=== PATIENT | female | born 1970 | race Caucasian/White ===

== ENCOUNTER 2025-03-02 19:22 | Inpatient (IN) | payer BC, SELFPAY ==
[2025-03-02] VITALS (10 sets, daily range): BP systolic 120–146; BP diastolic 77–96; BMI 33.2; BMI 31.7
[2025-03-02 14:34] LABS: % Basophils 0.3 % (0-2); % Eosinophils 1.6 % (0-6); % Immature Granulocytes 0.3 % (0-0.5); % Lymphocytes 16.4 % (20.5-51.1); % Monocytes 7.2 % (1.7-9.3); % Neutrophils 74.2 % (42.2-75.2); Absolute Eosinophils 0.2 10^3/uL (0-0.7); Absolute Lymphocytes 2.2 10^3/uL (1.2-3.4); Hematocrit 39.8 % (37.0-47.0); Hemoglobin 13.6 g/dL (12.0-16.0); Mean Corp Hgb Conc. 34.2 g/dL (33.0-37.0); Mean Corpuscular Hgb 33.8 pg (27.0-31.0); Mean Platelet Volume 9.2 fL (7.4-10.4); Nucleated Red Blood Cells % 0 %; Platelet Count 178 10^3/uL (130-400); Red Blood Cell Count 4.02 10^6/uL (4.20-5.40); Red Cell Dist. Width 12.8 % (11.5-14.5); White Blood Cell Count 13.5 10^3/uL (4.8-10.8)
[2025-03-02 14:47] LABS: D-Dimer 3.09 ug/mlFEU (0.00-0.50); HCG, Serum Qualitative Screen Negative
[2025-03-02 14:52] LABS: ALT (SGPT) 16 U/L (0-35); AST (SGOT) 22 U/L (14-36); Albumin 4.1 g/dl (3.5-5.0); Alkaline Phosphatase 60 U/L (38-126); Blood Urea Nitrogen 17 mg/dl (7-17); Calcium 9.7 mg/dl (8.4-10.2); Carbon Dioxide 25 mmol/L (22-30); Chloride 105 mmol/L (98-107); Glucose 102 mg/dl (70-99); Potassium 4.6 mmol/L (3.5-5.1); Sodium 138 mmol/L (135-145); Total Bilirubin 1.3 mg/dl (0.2-1.3); Total Protein 7.2 g/dl (6.3-8.2); eGFR > 60.00
--- NOTE | 2025-03-02 14:59 | ED.GENMED ---
History of Present Illness
General
Chief Complaint: Chest Pain
Source: patient
Exam Limitations: none
Time Seen by Provider: 03/02/25 14:52
History of Present Illness
History of Present Illness:
See MDM
Past History
Past History
ED Past Medical History: None
ED Past Surgical History: None
Social History
Tobacco: Non-smoker
Alcohol: None
Family History
Family History: CAD
Phy Exam
Physical Exam
Physical Exam:
See MDM
Scores
Heart Score for Chest Pain Patients
STEMI patient?: No
History: Moderately Suspicious
ECG: Normal
Age: >45 - <65 years
Risk Factors: 1 or 2 Risk Factors
Troponin: </= Normal Limit
Heart Score for Chest Pain Patients: 3
Heart Score Risk: 2.5% MACE over next 6 weeks
Course
Orders/Labs/Results
Orders:
Orders
03/02/25 13:13
Electrocardiogram (*1) Urgent
Reason for Study: Chest Pain
EKG- Treatment ONCE
03/02/25 13:30
Test Result ONCE
03/02/25 14:24
Complete Blood Count/With Diff Urgent
Comprehensive Metabolic Panel Urgent
D-Dimer Urgent
HCG, Serum Qualitative Screen Urgent
NT-proBNP Urgent
Comment: ADD ON
Troponin I Urgent
03/02/25 14:55
Add On- LAB Urgent
Tests Added?: pro BNP
CT Chest PE Study Urgent
Comment:
Reason For Exam: SOB, chest pain
03/02/25 18:15
PTT Urgent
Comment: Obtain baseline before beginning heparin infusion if not already collected
Heparin 7,900 units IV NOW STA
Heparin INFUSION titrate rate - CONTINUOUS Heparin 69549 Units/250 ml 25,000 units in 250 ml IV PER PROTOCOL
Weight to be used for heparin protocol in kilograms (kg):: 98.9
Protocol:: DVT/PE
PTT Goal Range to be used:: PTT 73 to 111 seconds
Order type:: Initial
INITIAL Infusion Dose (UNITS/KG/hr) & then follow protocol:: 18 units/kg/hr
Infusion Dose in UNITS/hr & then follow protocol (UNITS/hr):: 1,800
INFUSION RATE in mL/hr & then follow protocol (mL/hr):: 18
For DVT/PE algorithm, re-bolus for low PTT?: Yes
PTT less than or equal to 64 seconds:: Re-bolus 80 units/kg (max 10,000units). Increase by 400 units/hr
(+ 4mL/hr)
PTT 64.1 to 72.9 seconds:: Re-bolus 40 units/kg (max 5,000 units). Increase by 200 units/hr
(+ 2mL/hr)
PTT 73 to 111 seconds:: Target Range. No change in rate.
PTT 111.1 to 130.9 seconds:: Decrease rate by 200 units/hr (- 2 mL/hr)
PTT 131 to 199.9 seconds:: HOLD for 1 hr. Then decrease by 300 units/hr (- 3mL/hr)
PTT greater than or equal to 200 seconds:: HOLD for 2 hrs & Notify Provider. Then decrease by 400 units/hr
(- 4mL/hr)
Lab follow-up:: Each change, PTT q6h until 2 consecutive are therapeutic. Then
PTT daily.
Pharmacy Request to Place See Dose Instructions PO NOW STA
Discontinue all Active Warfarin orders?: Yes
Nursing to Place Non Medication Order As Directed
Physician Order: PTT 6 hours after initial start of Heparin infusion
03/02/25 19:[address] See Dose Instructions IV DIRECTED
Abnormal Lab Results
03/02/25
14:24
WBC 13.5 H 10^3/uL
(4.8-10.8)
RBC 4.02 L 10^6/uL
(4.20-5.40)
MCH 33.8 H pg
(27.0-31.0)
Absolute Neuts (auto) 10.0 H 10^3/uL
(1.4-6.5)
Absolute Monos (auto) 1.0 H 10^3/uL
(0.1-0.6)
Lymphocytes % 16.4 L %
(20.5-51.1)
D-Dimer 3.09 H ug/mlFEU
(0.00-0.50)
Glucose 102 H mg/dl
(70-99)
03/02/25 14:24
03/02/25 14:24
Vital Signs
Initial and Last Documented VS:
Initial Vital Signs
Temp Pulse Resp BP Pulse Ox
100.0 F 118 18 124/96 94
03/02/25 13:26 03/02/25 13:26 03/02/25 13:26 03/02/25 13:26 03/02/25 13:26
Last Documented Vital Signs
Temp Pulse Resp BP Pulse Ox
100.0 F 92 28 138/78 95
03/02/25 13:26 03/02/25 17:00 03/02/25 17:00 03/02/25 17:00 03/02/25 14:48
MDM/Problems Addressed
Differential Diagnosis Includes:
HPI and MDM Narrative:
54-year-old female presenting for 1 week of exertional dyspnea. Patient states she is getting winded even walking up the stairs. This was associated with mild leg cramping. She denies any fevers but she does have a low-grade fever here. She does
have mild chest discomfort and back pain. She denies prior cardiac issues but states she has a strong family history of coronary artery disease. D-dimer was ordered in triage given her symptoms and tachycardia. Given that the D-dimer is elevated,
will cancel chest x-ray and obtain CT PE.
EKG is nonischemic
Physical exam
General: Well appearing and non-toxic
HEENT: protecting airway
Neck: appears supple
CV: No evidence of cyanosis. Mild tachycardia
Resp: No accessory muscle use. Lungs clear
Abd: Non-distended
Extremities: No deformities. No significant leg edema or tenderness
Neuro: alert
Psych: Normal affect
Skin: Intact
Problems Addressed including Acute and Chronic Conditions affecting care:
1. Exertional chest pain and shortness of breath
Acuity: acute
Prognosis: stable
Details: Given the tachycardia and her symptoms, will obtain CT PE
Updates
CT consistent with bilateral pulmonary embolism. Patient now recollecting that she did have a recent fall and injured her leg. Potentially this was the inciting event. Regardless, we will start IV heparin and admit
Differential Diagnosis (but not limited to): Acute coronary syndrome, pulm embolism, pneumonia
Testing considered: Echocardiogram
Drug therapy (if applicable): OTC meds, please see d/c instruction regarding Rx drugs
Amount and/or Complexity of Data Reviewed
Clinical info obtained from: Patient
External data reviewed: N/A
Labs I independently reviewed (but not limited to): Mild leukocytosis. Troponin negative
Radiology: The CT scan was personally and independently reviewed. In addition, official CT report reviewed.
Pulse Ox: not hypoxic
EKG independently reviewed: Sinus tachycardia, normal axis, no STEMI
Cuff Setter Overlock: Sinus rhythm
Critical Care: The high probability of a clinically significant, sudden or life threatening deterioration of the cardiopulmonary system(s) required my full and direct attention, intervention and personal management. The aggregate critical care time
was 35 minutes. This time is in addition to time spent performing reported procedures but includes the following:
[x] Data Review and interpretation
[x] Patient assessment and monitoring of vital signs
[x] Documentation
[x] Medication orders and management
Risk of Complication:
Social Determinants of health: Good social support
Discussed with other providers: Hospitalist
Escalation of Care includes Admit/Obs: Given the bilateral pulmonary embolisms, will start IV heparin and admit
Occasional wrong word or 'sound a like' substitutions may have occurred due to the inherent limitations of voice recognition software. Read the chart carefully and recognize, using context, where substitutions have occurred.
*Critical Care Note
Total Time (30-74mins, 75-104mins- exclusive of procedures): 35 min
ED Attending Note
-
Portions of this chart may have been created with voice recognition software.� Occasional wrong word or��sound alike� substitutions may have occurred due to the inherent limitations of voice recognition software.
Discharge Plan
Departure
Patient Disposition: Admit
Date of Disposition: 03/02/25
Time of Disposition: 18:17
Admit to: IMU
Presentation/result/management discussed w/ accepting MD/DO: Hospitalist
Discharge Problem:
Pulmonary embolism
Prescriptions:
No Action
No Current Medications
0
Referrals:
NONE,* [Family Provider] -
Interventions
Interventions:
*Risk Screen - Suicide Last Done: 03/02/25 13:26
*General Assessment Last Done: 03/02/25 13:26
*Neglect/Abuse Screening Last Done: 03/02/25 13:26
*ED- Fall Risk Assessment Last Done: 03/02/25 14:28
*ED COVID-19 Vaccine History Last Done: 03/02/25 14:28
ED- Cardiac Assessment Last Done: 03/02/25 14:43
Discharge Date and Time
Print Language: MARSHALLESE
[2025-03-02 15:03] LABS: Troponin I < 0.012 ng/ml
[2025-03-02 15:50] LABS: NT-proBNP 57.4 pg/ml
[2025-03-02] MEDS: HEPARIN 7900 UNITS IV (18:42)
[2025-03-02] MEDS: HEPARIN 25000 UNITS/250 ML IV (18:45)
--- NOTE | 2025-03-02 19:01 | HPS.HSE ---
Family Physician
-
Family Physician: * NONE
Chief Complaint
-
chest pain
History of Present Illness
54-year-old female past medical history of exercise-induced asthma, GERD, recently diagnosed diabetes presenting with shortness of breath for the past several weeks particularly since yesterday, dry cough, chest pain with radiation to the back with
breathing.
2 weeks ago she had a fall from a truck fell onto her left hip with pain over the left upper thigh. He did have some bruising which improved.
She does have cramping in her bilateral legs. She has also had pain in her left abdomen described as cramping and epigastric region since yesterday. She did have some loose stool this morning but no vomiting or diarrhea or constipation. Patient
thought that she felt a lump in her belly.
Denies any long travels, recent surgery, or COVID infection.
She was recently diagnosed with diabetes with an A1c greater than 7 but is still in the process of finding a primary care physician.
She has significant family history of heart disease on her father side. Her maternal grandmother had emphysema. No family history of blood clots.
She smoked when she was very young for short period of time. Denies alcohol. Denies drugs.
Medical History
Past Medical History
Past Medical History: Reports Other (exercise-induced asthma, GERD,)
Past Surgical History: Reports None
Social History
Tobacco: Non-smoker
Alcohol: None
Drug: None
Family History
Family History: Not pertinent
Allergies / Home Medications
Allergies reflects when Allergies were last updated in [facility].
Home Medications with original date entered in [facility]
Allergy/Medication List:
Allergies
Allergy/AdvReac Type Severity Reaction Status Date / Time
cefprozil [From Cefzil] Allergy Unknown Verified 03/02/25 13:25
oxycodone [From Percocet] Allergy Unknown Verified 03/02/25 13:25
Penicillins Allergy Unknown Verified 03/02/25 13:25
Home Medications
No Meds [No Current Medications] 03/02/25
Review of Systems
-
History Source: Patient
A 12 point ROS was completed and negative except as noted: Yes
Constitutional: Reports No Symptoms
EENT: Reports No Symptoms
Respiratory: Reports No Symptoms
Cardiac: Reports No Symptoms
Abdomen/GI: Reports No Symptoms
: Reports No Symptoms
Musculoskeletal: Reports No Symptoms
Skin: Reports No Symptoms
Neurological: Reports No Symptoms
Endocrine: Reports No Symptoms
Hematologic/Lymphatic: Reports No Symptoms
Psych: Reports No Symptoms
Physical Exam
Vital Signs
Vital Signs
Temp Pulse Resp BP Pulse Ox
100.0 F 98 26 141/83 95
03/02/25 13:26 03/02/25 18:45 03/02/25 18:45 03/02/25 18:00 03/02/25 14:48
Physical Exam
General: Well Developed, Well Nourished and No Apparent Distress
HEENT: NormoCephalic, Moist mucous membranes and Atraumatic
Respiratory: Clear
Cardiac: S1/S2 and Regular Rhythm; No Murmur or Rub
GI: Soft, Non Tender, Non Distended and Normal Bowel Sounds; No Organomegaly
Rectal: Deferred by Provider
Musculoskeletal: No Clubbing, No Cyanosis and No Edema
Skin: No Rash
Neuro: Nonfocal/grossly intact
Laboratory Results
-
03/02/25 14:24
03/02/25 14:24
Laboratory Results
Total Bilirubin 1.3 mg/dl (0.2-1.3) 03/02/25 14:24
AST 22 U/L (14-36) 03/02/25 14:24
ALT 16 U/L (0-35) 03/02/25 14:24
Alkaline Phosphatase 60 U/L (38-126) 03/02/25 14:24
Troponin I < 0.012 ng/ml 03/02/25 14:24
Data Reviewed
-
Lab Data: Labs Reviewed by me
Old Records: Reviewed
Impression/Plan
-
IMPRESSION:
PLAN:
# Unprovoked bilateral pulmonary emboli
-Only provoking factor could be DVT from recent fall
-CT chest shows moderate volume bilateral pulmonary embolism, right greater than left in the distal right main pulmonary artery with findings suggesting developing pulmonary infarct
- Heparin drip
- Check venous ultrasound lower extremities
- Check echo
# Epigastric/left lower quadrant abdominal pain unclear etiology
-No palpable mass or hernia
- Unclear etiology
- Check CT scan abdomen tomorrow since she has already received significant IV contrast today
- Tylenol, Dilaudid for pain
Recently diagnosed diabetes
- Not started treatment yet
GERD
Exercise-induced asthma
Full code
DVT prophylaxis�heparin
Regular diet
[2025-03-02 19:04] LABS: APTT 29.1 Sec (23.4-35.0)
[2025-03-02] MEDS: DILAUDID 0.5 MG IV (19:17)
--- NOTE | 2025-03-02 21:00 | TRANSFER ---
Addendum entered by Jewels Esquivel RN 03/03/25 02:20:
all belongings and call lopez within reach. pt updated on plan of care. daughter left for the night.
Original Note:
Pt was received from the ED. Ambulated to the bed with heparin gtt infusing. Telemetry monitoring in place. Oriented to the room. Pt aware of need to call when getting OOB due to IV pole and bleeding risk.
[2025-03-02] MEDS: TYLENOL 650 MG PO (21:25)
[2025-03-03 01:01] LABS: APTT 191.5 Sec (23.4-35.0)
[2025-03-03 03:11] VITALS: BP 113/70
--- NOTE | 2025-03-03 03:17 | PTCARENOTE ---
Found to be hypoxic 88-90% RA. Placed on 4L NC. SPO2 improved to 95%. Clear breath sounds with newly diminished BL lower bases. Pt c/o chest tightness, denies SOB. Provider notified.
[2025-03-03] MEDS: DUONEB 3 ML INH ×2 (03:35→09:54)
[2025-03-03 05:46] LABS: % Basophils 0.3 % (0-2); % Eosinophils 2.8 % (0-6); % Immature Granulocytes 0.3 % (0-0.5); % Lymphocytes 27.1 % (20.5-51.1); % Monocytes 8.9 % (1.7-9.3); % Neutrophils 60.6 % (42.2-75.2); Absolute Eosinophils 0.4 10^3/uL (0-0.7); Absolute Lymphocytes 3.5 10^3/uL (1.2-3.4); Absolute Monocytes 1.1 10^3/uL (0.1-0.6); Absolute Neutrophils 7.7 10^3/uL (1.4-6.5); Hematocrit 38.3 % (37.0-47.0); Hemoglobin 13.1 g/dL (12.0-16.0); Mean Corp Hgb Conc. 34.2 g/dL (33.0-37.0); Mean Corpuscular Hgb 34.3 pg (27.0-31.0); Mean Corpuscular Volume 100.3 fL (81.0-99.0); Mean Platelet Volume 10.1 fL (7.4-10.4); Nucleated Red Blood Cells % 0 %; Platelet Count 183 10^3/uL (130-400); Red Blood Cell Count 3.82 10^6/uL (4.20-5.40); Red Cell Dist. Width 12.9 % (11.5-14.5); White Blood Cell Count 12.8 10^3/uL (4.8-10.8)
[2025-03-03 06:09] LABS: ALT (SGPT) 13 U/L (0-35); AST (SGOT) 19 U/L (14-36); Albumin 3.5 g/dl (3.5-5.0); Alkaline Phosphatase 69 U/L (38-126); Blood Urea Nitrogen 16 mg/dl (7-17); Calcium 9.3 mg/dl (8.4-10.2); Carbon Dioxide 25 mmol/L (22-30); Chloride 105 mmol/L (98-107); Estimated Creatinine Clearance 87 ml/min; Glucose 101 mg/dl (70-99); Potassium 4.2 mmol/L (3.5-5.1); Sodium 140 mmol/L (135-145); Total Bilirubin 1.3 mg/dl (0.2-1.3); Total Protein 6.4 g/dl (6.3-8.2); eGFR > 60.00
[2025-03-03 07:05] VITALS: BP 111/73
[2025-03-03 09:27] LABS: APTT 134.4 Sec (23.4-35.0)
[2025-03-03 11:05] VITALS: BP 139/64
--- NOTE | 2025-03-03 12:02 | PTCARENOTE ---
patient removed oxygen to eat breakfast- POX 94% on room air- patient ambulated to bathroom- noted dyspnea while ambulating back to bed. POX 84%- placed on oxygen 2L/min nasal cannula- POX 94% after 2 minutes. patient also reported increase in
upper chest tightness and requested breathing treatment. resp tech made aware. dyspnea improved as well as chest tightness Dr Mendieta made aware of above. plan of care on gong.
[2025-03-03] MEDS: HEPARIN 25000 UNITS/250 ML IV (12:24)
--- NOTE | 2025-03-03 13:31 | W.PN.HOSP.TC ---
Today's Communication/Plan
-
continue Heparin for now, start DOAC later today.
Protonix to be started
Pt seen earlier, made 2nd visit after family arrived. Mother with many questions and concerns
Assessment / Plan
Assessment / Plan
# Unprovoked bilateral pulmonary emboli
-Only provoking factor could be DVT from recent fall
-CT chest shows moderate volume bilateral pulmonary embolism, right greater than left in the distal right main pulmonary artery with findings suggesting developing pulmonary infarct
- Heparin drip
- venous ultrasound lower extremities: Occlusive thrombus in the left popliteal vein.
- Check echo
# Epigastric/left upper quadrant abdominal pain unclear etiology. Has had for months, nontender, nonburning
-No palpable mass or hernia
- Unclear etiology
- contacted radiology (Dr. Donovan) and reviewed the epigastric area with him. No gross abnormalities seen.
she does have significant GERD, will try protonix to see if symptoms resolve, may need referral to outpt GI, but options on eval may be limited until completes DOAC
- Tylenol, Dilaudid for pain
Recently diagnosed diabetes
- Not started treatment yet
GERD
Exercise-induced asthma
Full code
DVT prophylaxis�heparin
Regular diet
Anticipated Discharge: 24 - 48 hours
Subjective/Interval History
-
Date of Service: March 03, 2025
Still with pleuritic chest pain
Objective Data
-
Labs:
Laboratory Results
03/03/25 03/03/25 03/03/25
04:17 08:58 17:00
WBC 12.8 H
Hgb 13.1
Hct 38.3
Plt Count 183
APTT 134.4 H Pending
Sodium 140
Potassium 4.2
Chloride 105
Carbon Dioxide 25
BUN 16
Creatinine 0.9
Glucose 101 H
Calcium 9.3
Total Bilirubin 1.3
AST 19
ALT 13
Alkaline Phosphatase 69
Vital Signs:
Vital Signs
Temp Pulse Resp BP Pulse Ox
98.4 F 92 16 139/64 95
03/03/25 11:05 03/03/25 11:05 03/03/25 11:05 03/03/25 11:05 03/03/25 11:05
I&O
03/02/25 03/03/25 03/04/25
06:59 06:59 06:59
Intake Total 480 / 480
Balance 480 / 480
Review of Systems
-
History Source: Patient and Coordinated Provider
Constitutional: Reports Fever (100.6 5/2 @23:00)
EENT: Reports No Symptoms Reported
Respiratory: Reports Cough and Pleurisy
Cardiac: Reports No Symptoms and Chest Pain (pleurisy)
Abdomen/GI: Reports No Symptoms
Genitourinary: Reports No Symptoms
Musculoskeletal: Reports No Symptoms
Neuro: Reports No Symptoms
Physical Exam
-
General: Well Developed, Well Nourished and No Apparent Distress
HEENT: Normocephalic, Atraumatic and Moist Mucous Membranes
Respiratory: Clear to Auscultation (on shallow respirations, followed by coughing)
Cardiac: Regular Rhythm and S1/S2
GI: Soft, Nontender and Nondistended
Musculoskeletal: No Clubbing, No Cyanosis and No Edema
Skin: Warm and Dry
Neuro: Awake, Alert and Oriented
--- NOTE | 2025-03-03 14:36 | CM ---
Met with patient to obtain information for assessment. Family was at bedside. Patient stated that she lives with her two college aged children in a one story home with a basement and one step to enter. She described herself as independent with her
ADLs, personal care, dressing and bathing. 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 She drives and can get to appointments and does her own shopping. Patient has no DME. She has never had VN or been to a SNF. She is currently
on o2 but does not have any at home. Patient is employed night time babysitter as a teacher.
Patient has a prescription plan and uses, [facility] in [place] for all of her medications.
She stated that she currently does not have a PCP but did make an appointment for a practice in April.
Per attending patient will need to be on Eliquis. Advised attending and patient of the coupon plan for commercial insurances. Will provide cards.
Plan: Case management will continue to follow and assist with discharge planning. Home when stable. Will watch for o2 needs.
[2025-03-03 15:05] VITALS: BP 121/75
[2025-03-03 18:05] LABS: APTT 57.7 Sec (23.4-35.0)
[2025-03-03] MEDS: HEPARIN 7900 UNITS IV (18:17)
[2025-03-03] MEDS: PROTONIX 40 MG PO (18:18)
[2025-03-03 19:50] VITALS: BP 126/69
[2025-03-03] MEDS: ELIQUIS 10 MG PO (19:58)
[2025-03-03 23:11] VITALS: BP 102/69
[2025-03-04 03:05] VITALS: BP 107/65
[2025-03-04 06:42] LABS: % Basophils 0.4 % (0-2); % Eosinophils 5.4 % (0-6); % Immature Granulocytes 0.3 % (0-0.5); % Lymphocytes 21.9 % (20.5-51.1); % Monocytes 7.9 % (1.7-9.3); % Neutrophils 64.1 % (42.2-75.2); Absolute Eosinophils 0.6 10^3/uL (0-0.7); Absolute Lymphocytes 2.2 10^3/uL (1.2-3.4); Absolute Monocytes 0.8 10^3/uL (0.1-0.6); Absolute Neutrophils 6.5 10^3/uL (1.4-6.5); Hematocrit 36.8 % (37.0-47.0); Hemoglobin 12.5 g/dL (12.0-16.0); Mean Corpuscular Hgb 33.6 pg (27.0-31.0); Mean Corpuscular Volume 98.9 fL (81.0-99.0); Mean Platelet Volume 9.7 fL (7.4-10.4); Nucleated Red Blood Cells % 0 %; Platelet Count 189 10^3/uL (130-400); Red Blood Cell Count 3.72 10^6/uL (4.20-5.40); Red Cell Dist. Width 12.7 % (11.5-14.5); White Blood Cell Count 10.1 10^3/uL (4.8-10.8)
[2025-03-04 07:05] VITALS: BP 110/70
[2025-03-04 07:47] LABS: Blood Urea Nitrogen 15 mg/dl (7-17); Carbon Dioxide 27 mmol/L (22-30); Chloride 105 mmol/L (98-107); Estimated Creatinine Clearance 78 ml/min; Glucose 107 mg/dl (70-99); Sodium 140 mmol/L (135-145); eGFR > 60.00
[2025-03-04] MEDS: ELIQUIS 10 MG PO ×2 (08:03→20:06)
[2025-03-04] MEDS: PROTONIX 40 MG PO (08:03)
[2025-03-04 10:52] LABS: Glycohemoglobin (HgbA1c) 5.6 % (4.0-5.6)
[2025-03-04 11:00] VITALS: BP 118/70
--- NOTE | 2025-03-04 13:29 | W.PN.HOSP.TC ---
Today's Communication/Plan
-
Continue Eliquis 10 mg bid
GI consult
continue oxygen supplement
Assessment / Plan
Assessment / Plan
# Unprovoked bilateral pulmonary emboli
-Only provoking factor could be DVT from recent fall
-CT chest shows moderate volume bilateral pulmonary embolism, right greater than left in the distal right main pulmonary artery with findings suggesting developing pulmonary infarct. No cardiac findings to suggest heart strain
- Heparin drip-->Eliquis 10 mg bid
- venous ultrasound lower extremities: Occlusive thrombus in the left popliteal vein.
- Check echo
Significant pleurisy, would not use NSAID due to possible GI issues and caution with steroids due to prediabetic
Still requiring 2 L/M NC because of SOB, again, she is taking deeper breaths today, so hope is that will resolve next 24 hrs
Leukocytosis has resolved 13.5-->12.8-->10.1k
# Epigastric/left upper quadrant abdominal pain unclear etiology. Has had for months, nontender, nonburning
-No palpable mass or hernia
- Unclear etiology
- contacted radiology (Dr. Donovan) and reviewed the epigastric area with him. No gross abnormalities seen.
she does have significant GERD, will try protonix to see if symptoms resolve, pt believes may have eased over past 24 hrs. May need referral to outpt GI, but options on eval may be limited until completes DOAC. Pt and mother are very
concerned about this and really would like further evaluation.
Will consult GI
- Tylenol, Dilaudid for pain
Recently diagnosed diabetes
- Not started treatment yet. Hga1c 5.6%
GERD
Exercise-induced asthma
Full code
DVT prophylaxis�heparin-->Eliquis
Regular diet
Anticipated Discharge: 24 - 48 hours
Subjective/Interval History
-
Date of Service: March 04, 2025
Still with sob with even minimal walking
Objective Data
-
Labs:
Laboratory Results
03/04/25 03/04/25
06:09 07:22
WBC 10.1
Hgb 12.5
Hct 36.8 L
Plt Count 189
Sodium Cancelled 140
Potassium Cancelled 4.0
Chloride Cancelled 105
Carbon Dioxide Cancelled 27
BUN Cancelled 15
Creatinine Cancelled 1.0
Glucose Cancelled 107 H
Calcium Cancelled 9.0
Vital Signs:
Vital Signs
Temp Pulse Resp BP Pulse Ox
98 F 80 16 118/70 95
03/04/25 11:00 03/04/25 11:00 03/04/25 11:00 03/04/25 11:00 03/04/25 11:00
I&O
03/03/25 03/04/25 03/05/25
06:59 06:59 06:59
Intake Total 480 / 480 480 / 480 480 / 480
Balance 480 / 480 480 / 480 480 / 480
Review of Systems
-
History Source: Patient and Coordinated Provider
Constitutional: Reports Fever (100.6 5/2 @23:00, none since)
EENT: Reports No Symptoms Reported
Respiratory: Reports Cough and Pleurisy
Cardiac: Reports No Symptoms and Chest Pain (pleurisy)
Abdomen/GI: Reports No Symptoms
Genitourinary: Reports No Symptoms
Musculoskeletal: Reports No Symptoms
Neuro: Reports No Symptoms
Physical Exam
-
General: Well Developed, Well Nourished and No Apparent Distress
HEENT: Normocephalic, Atraumatic and Moist Mucous Membranes
Respiratory: Clear to Auscultation (on shallow respirations, followed by coughing, but able to take a deeper breath today, compared to yesterday)
Cardiac: Regular Rhythm and S1/S2
GI: Soft, Nontender and Nondistended
Musculoskeletal: No Clubbing, No Cyanosis and No Edema
Skin: Warm and Dry
Neuro: Awake, Alert and Oriented
[2025-03-04 15:45] VITALS: BP 123/74
--- NOTE | 2025-03-04 17:30 | CM ---
Provided patient with an [facility] Coupon for free 30 days and 10 dollar monthly coupon.
Plan: Case management will continue to follow and assist with discharge planning. Home when medically cleared. May need o2.
[2025-03-04 19:45] VITALS: BP 125/82
[2025-03-04] MEDS: PEPCID 40 MG PO (20:09)
[2025-03-05] VITALS (7 sets, daily range): BP systolic 109–142; BP diastolic 65–81
[2025-03-05] MEDS: TYLENOL 650 MG PO (04:13)
[2025-03-05] MEDS: PROTONIX 40 MG PO (09:56)
[2025-03-05] MEDS: ELIQUIS 10 MG PO ×2 (09:57→19:25)
--- NOTE | 2025-03-05 10:19 | CM ---
Echo ordered.
Pt on oxygen 2 liters with Pox 98%.
On Eliquis will offer coupons to patient .
Lives independently at home.
PLAN Home no anticipated need . Watch for oxygen needs
[2025-03-05] MEDS: ATARAX 10 MG PO (10:24)
--- NOTE | 2025-03-05 12:57 | W.PN.HOSP.TC ---
Today's Communication/Plan
-
Wean oxygen as tolerated
Continue with Eliquis
Awaiting GI input
Assessment / Plan
Assessment / Plan
# Unprovoked bilateral pulmonary emboli
# Acute hypoxic respiratory insufficiency
-Only possible provoking factor could be DVT from recent fall
-CT chest shows moderate volume bilateral pulmonary embolism, right greater than left in the distal right main pulmonary artery with findings suggesting developing pulmonary infarct. No cardiac findings to suggest heart strain
-Heparin drip-->Eliquis 10 mg bid
-venous ultrasound lower extremities: Occlusive thrombus in the left popliteal vein.
-Echocardiogram with EF of 55 to 60%. No significant valve disease. Normal biventricular size and systolic function without regional wall motion abnormality.
-Wean oxygen as tolerated
- Patient states she is due for colonoscopy. Had mammogram and Pap smear 3 years ago and was found to be normal. Recommended to follow-up with primary care for cancer screening and to be updated.
-PESI score Class III, Intermediate Risk: 3.2-7.1% 30-day mortality in this group.
# Epigastric/left upper quadrant abdominal pain unclear etiology. Has had for months, nontender, nonburning
-No palpable mass or hernia
-Dr. Mendieta contacted radiology (Dr. Donovan) and reviewed the epigastric area with him. No gross abnormalities seen.
-Underwent upper gastrointestinal series which showed Mild persistent short segment smooth narrowing of the distal thoracic esophagus. Findings could represent mild stricture. Mass would be unlikely but cannot be entirely excluded. Suggest upper
endoscopy if not recently obtained.
-Continue with PPI and H2 janell
-Tylenol, Dilaudid for pain
-Awaiting GI eval
Recently diagnosed diabetes
- Not started treatment yet.
GERD
Exercise-induced asthma
Full code
DVT prophylaxis�heparin-->Eliquis
Anticipated Discharge: > 48 hours
Subjective/Interval History
-
Date of Service: March 05, 2025
states developed hives overnight-improving
on oxygen
remains with epigastric discomfort
Objective Data
-
Vital Signs:
Vital Signs
Temp Pulse Resp BP Pulse Ox
98.3 F 78 18 109/65 96
03/05/25 11:40 03/05/25 11:40 03/05/25 11:40 03/05/25 11:40 03/05/25 11:40
I&O
03/04/25 03/05/25 03/06/25
06:59 06:59 06:59
Intake Total 480 / 480 2160 / 2160
Balance 480 / 480 2160 / 2160
Physical Exam
-
General: Well Developed, Well Nourished, No Apparent Distress and Obese
HEENT: Normocephalic, Atraumatic, Moist Mucous Membranes and Oxygen
Respiratory: Clear to Auscultation
Cardiac: Regular Rhythm and S1/S2
GI: Soft, Nontender, Nondistended and Normal Bowel Sounds
Musculoskeletal: No Clubbing, No Cyanosis and No Edema
Skin: Warm and Dry
Neuro: Awake, Alert, Oriented, AO x 3 and No Motor Deficits
Psych: Calm
--- NOTE | 2025-03-05 14:17 | CON.GI ---
Addendum entered and electronically signed by Sheyla Adhikari DO 03/05/25 15:12:
patient seen and examined independently of [employer]. agree with her note with my additions below:
Anu is a 54-year-old female with no significant past medical history other than obesity not on any outpatient medications other than a couple of Aleve recently after a mild fall. admitted with chest pain cough found have pulmonary emboli placed
on anticoagulation. Dr. Mendieta called us because the patient has been having some intermittent pressure when swallowing solids but are present despite not eating. No dysphagia to liquids. No solid food regurgitation, but has pressure with
swallowing. Doesn't occur every time.
Also has chronic heartburn. She states that she has had heartburn for years not on any acid medication that can occasionally wake her from sleep. Her father has Fulton's with dysplasia that is been ablated at [place]. She has never had an
endoscopy. She has never been on PPI. No weight loss, no nausea or vomiting. No abdominal pain, diarrhea or constipation. Never had a colonoscopy.
Labs are consistent with a mild leukocytosis that is since resolved, no anemia, platelets 189, normal LFTs with a total bilirubin of 1.3, AST 19, ALT 13, alkaline phosphatase 69, normal basic metabolic panel. Upper GI series was done today showing
mild persistent short segment smooth narrowing of the distal thoracic esophagus which could represent a mild stricture. Mass is unlikely but cannot be excluded. I reviewed her ECHO with no concerning findings. Currently, off o2 but feels she needs
it with walki
CT shows a moderate volume bilateral PE right greater than left with distal right main pulmonary artery suggesting developing pulmonary infarct. Also an occlusive thrombus in the left popliteal vein. On the CT chest there is no suspicious
lymphadenopathy. No focal abnormality in the upper abdomen
Currently, patient is on Eliquis and was started on 03/03/2025
#abnormal UGI series/dysphagia with solids intermittently not on ppi
-- ppi started yesterday
-- etiology could be benign esophagitis vs benign web/stricture vs neoplasm vs motility vs nothing
-- will do EGD tomorrow on Eliquis but won't be able to biopsy or dilate
-- patient agreeable
-- NPO after midnight
-- continue eliquis
Dictated By: Sheyla Adhikari DO
Dictated Date & Time: 03/05/25 1421
Original Note:
Consultation
-
Date/Time Consultation Requested: 03/04/25 1330
Date/Time Consultation Performed: 03/05/25 1400
Requesting Provider: Leobardo Mendieta MD
Performing Provider: HANNAH Elizalde, Sheyla Adhikari DO
Reason for Consultation: epigastric abdominal pain, dysphagia
Medical History
Chief Complaint / HPI
Chief Complaint: shortness of breath, epigastric pain, dysphagia
History of Present Illness:
Pt is a 54yo with hx asthma, GERD, NIDDM(newly diagnosed), PNA, prior shingles, prior tracey, , family hx fulton's in her father presents 03/02 with shortness of breath. Prior to admission noted with fall onto left hip bruising that is
improved. Work up on admission with concern for unprovoked B/L PE. She was also noted with Occlusive thrombus in the left popliteal vein. She has been placed on Eliquis Pt also with some complaints of some chronic epigastric pain and dysphagia
ongoing prior to admission. . In review with patient she admits to dysphagia with solids and bread type substances. Will happen intermittently. Less symptoms with liquids. She also admits to chronic epigastric symptoms with bloating. Worse with
eating and improved with meds started on admission. no wt loss, odynophagia, nausea/vomiting, hematemesis, diarrhea, constipation or rectal bleeding. Since admission she completed UGI since prior to evaluation witn oted mild persistent smooth
narrowing of distal thoracic esophagus. Possible mild stricture, mass unlikely but not excluded suggesting EGD. Pt denies hx EGD or colonoscopy in past. She does admits to increased stress with current divorce. Occasional NSAID use 1 dose per
week.
Past Medical History
Past Medical History: Asthma, GERD, NIDDM and Other (PNA, prior shingles)
Past Surgical History: Cholecystectomy and
Social History
Tobacco: Non-Smoker
Alcohol: None
Drug: None
Personal: (currently working on Divorce)
Living: With Family (kids )
Employment: Employed
Family History
Family History: Other (father with fulton's esophagus )
Allergies / Home Medications
Allergy/AdvReac Type Severity Reaction Status Date / Time
cefprozil [From Cefzil] Allergy Unknown Verified 03/02/25 13:25
oxycodone [From Percocet] Allergy Unknown Verified 03/02/25 13:25
Penicillins Allergy Unknown Verified 03/02/25 13:25
�Medication �Instructions �Recorded
No Meds [No Current Medications] 03/02/25
Review of Systems
-
History Source: Patient and Family
Constitutional: Reports No Symptoms
Respiratory: Reports Trouble Breathing (on admission)
Cardiac: Reports Chest Pain (on admission with some improvement )
Abdomen/GI: Reports Abdominal Pain (epigastric with bloating) and Other (dysphagia with solids )
: Reports No Symptoms
Musculoskeletal: Reports Other (recent fall with left side bruising now improved )
Skin: Reports No Symptoms
Neurological: Reports No Symptoms
Endocrine: Reports No Symptoms
Hematologic/Lymphatic: Reports No Symptoms
Vital Signs
Temp Pulse Resp BP Pulse Ox
98.3 F 78 18 109/65 96
03/05/25 11:40 03/05/25 11:40 03/05/25 11:40 03/05/25 11:40 03/05/25 11:40
Physical Exam
Exam
General: Well Developed, Well Nourished and No Apparent Distress
HEENT: Normocephalic and Anicteric
Respiratory: Other (decreased bases )
Cardiac: Regular Rhythm
GI: Soft, Non Distended and Tender (minimal epigastric )
Musculoskeletal: No Clubbing and No Cyanosis
Skin: Warm and Dry
Neuro: Awake, Alert and AO x 3
Psych: Calm
Results
WBC 10.1 10^3/uL (4.8-10.8) 03/04/25 06:09
Hgb 12.5 g/dL (12.0-16.0) 03/04/25 06:09
Hct 36.8 % (37.0-47.0) L 03/04/25 06:09
MCV 98.9 fL (81.0-99.0) 03/04/25 06:09
Plt Count 189 10^3/uL (130-400) 03/04/25 06:09
Absolute Neuts (auto) 6.5 10^3/uL (1.4-6.5) 03/04/25 06:09
APTT 57.7 Sec (23.4-35.0) H 03/03/25 17:46
Sodium 140 mmol/L (135-145) 03/04/25 07:22
Potassium 4.0 mmol/L (3.5-5.1) 03/04/25 07:22
Chloride 105 mmol/L (98-107) 03/04/25 07:22
Carbon Dioxide 27 mmol/L (22-30) 03/04/25 07:22
BUN 15 mg/dl (7-17) 03/04/25 07:22
Creatinine 1.0 mg/dL (0.6-1.0) 03/04/25 07:22
Calcium 9.0 mg/dl (8.4-10.2) 03/04/25 07:22
Total Bilirubin 1.3 mg/dl (0.2-1.3) 03/03/25 04:17
AST 19 U/L (14-36) 03/03/25 04:17
ALT 13 U/L (0-35) 03/03/25 04:17
Alkaline Phosphatase 69 U/L (38-126) 03/03/25 04:17
Diagnostic Image Results:
03/05/25 UGI
Mild persistent short segment smooth narrowing of the distal thoracic esophagus. Findings could represent mild stricture. Mass would be unlikely but cannot be entirely excluded. Suggest upper endoscopy if not recently obtained.
03/02/25 CT Chest PE Study
Moderate volume bilateral pulmonary embolism, right lung greater than left lung beginning at the mid to distal right main pulmonary artery and involving proximal to mid segmental and subsegmental branches bilaterally. No findings to suggest central
saddle type embolism.
No cardiac findings to suggest right heart strain.
Likely bilateral subsegmental atelectasis. Developing pulmonary infarct, particularly in the right lower lobe cannot be excluded.
03/03/25 US Periph Venous LOWER Ext Tuan
Occlusive thrombus in the left popliteal vein.
No other DVT, bilaterally.
Prior GI Procedures:
EGD: none
Colonoscopy: none
Assessment / Plan
-
Pt is a 54yo with hx asthma, GERD, NIDDM(newly diagnosed), PNA, prior shingles, prior tracey, , family hx fulton's in her father presents 03/02 with shortness of breath. Prior to admission noted with fall onto left hip bruising that is
improved. Work up on admission with concern for unprovoked B/L PE. She was also noted with Occlusive thrombus in the left popliteal vein. She has been placed on Eliquis Pt also with some complaints of some chronic epigastric pain and dysphagia
ongoing prior to admission. . In review with patient she admits to dysphagia with solids and bread type substances. Will happen intermittently. Less symptoms with liquids. She also admits to chronic epigastric symptoms with bloating. Worse with
eating and improved with meds started on admission. no wt loss, odynophagia, nausea/vomiting, hematemesis, diarrhea, constipation or rectal bleeding. Since admission she completed UGI since prior to evaluation with noted mild persistent smooth
narrowing of distal thoracic esophagus. Possible mild stricture, mass unlikely but not excluded suggesting EGD. Pt denies hx EGD or colonoscopy in past. She does admits to increased stress with current divorce. Occasional NSAID use 1 dose per
week.
-dysphagia with solids
-mild epigastric pain with bloating
-abnormal UGI with mild persistent smooth narrowing of distal thoracic esophagus with possible stricture vs other
-unprovoked b/l PE and noted occlusive thrombus of left popliteal vein
-recent fall with bruising
other med problems:
-new NIDDM
-GERD
-Asthma
-Prior hx PNA
-prior shingles
-
-family hx fulton's esophagus in father
PLAN:
etiology of dysphagia and epigastric pain unclear underlying GERD but also noted abnormal UGI series with distal thoracic esophageal narrowing
will review with Dr. Adhikari - UGI completed this am
t/c EGD on Eliquis vs need to wait til Eliquis can be safely held with PE/DVT
cont PPI and H2 janell
new NIDDM management per medical team
eventual colonoscopy for screening when safely able to come off anticoagulation
-
-
Thank you for consultation and allowing me to participate in the patient's care. Please call the industrial relations counselor GI physician during the after hours with any questions or concerns.
--- NOTE | 2025-03-05 14:21 | W.PN.UPDATE ---
Update Note
Progress Note Update
Anu is a 54-year-old female with no significant past medical history other than obesity not on any outpatient medications other than a couple of Aleve recently after a mild fall. admitted with chest pain cough found have pulmonary emboli placed
on anticoagulation. Dr. Mendieta called us because the patient has been having some intermittent pressure when swallowing solids but are present despite not eating. No dysphagia to liquids. No solid food regurgitation, but has pressure with
swallowing. Doesn't occur every time.
Also has chronic heartburn. She states that she has had heartburn for years not on any acid medication that can occasionally wake her from sleep. Her father has Juarez's with dysplasia that is been ablated at [place]. She has never had an
endoscopy. She has never been on PPI. No weight loss, no nausea or vomiting. No abdominal pain, diarrhea or constipation. Never had a colonoscopy.
Labs are consistent with a mild leukocytosis that is since resolved, no anemia, platelets 189, normal LFTs with a total bilirubin of 1.3, AST 19, ALT 13, alkaline phosphatase 69, normal basic metabolic panel. Upper GI series was done today showing
mild persistent short segment smooth narrowing of the distal thoracic esophagus which could represent a mild stricture. Mass is unlikely but cannot be excluded. I reviewed her ECHO with no concerning findings. Currently, off o2 but feels she needs
it with walki
CT shows a moderate volume bilateral PE right greater than left with distal right main pulmonary artery suggesting developing pulmonary infarct. Also an occlusive thrombus in the left popliteal vein. On the CT chest there is no suspicious
lymphadenopathy. No focal abnormality in the upper abdomen
Currently, patient is on Eliquis and was started on 03/03/2025
#abnormal UGI series/dysphagia with solids intermittently not on ppi
-- ppi started yesterday
-- etiology could be benign esophagitis vs benign web/stricture vs neoplasm vs motility vs nothing
-- will do EGD tomorrow on Eliquis but won't be able to biopsy or dilate
-- patient agreeable
-- NPO after midnight
-- continue eliquis
[2025-03-05] MEDS: PEPCID 40 MG PO (19:26)
[2025-03-05] MEDS: BENADRYL 25 MG PO (21:32)
[2025-03-06] VITALS (9 sets, daily range): BP systolic 20–120; BP diastolic 67–78
[2025-03-06 07:10] LABS: % Basophils 0.6 % (0-2); % Eosinophils 10.7 % (0-6); % Immature Granulocytes 0.3 % (0-0.5); % Lymphocytes 22.5 % (20.5-51.1); % Monocytes 6.9 % (1.7-9.3); Absolute Basophils 0.1 10^3/uL (0-0.2); Absolute Eosinophils 1.1 10^3/uL (0-0.7); Absolute Lymphocytes 2.2 10^3/uL (1.2-3.4); Absolute Monocytes 0.7 10^3/uL (0.1-0.6); Absolute Neutrophils 5.8 10^3/uL (1.4-6.5); Hematocrit 38.8 % (37.0-47.0); Hemoglobin 13.2 g/dL (12.0-16.0); Mean Corpuscular Hgb 33.8 pg (27.0-31.0); Mean Corpuscular Volume 99.5 fL (81.0-99.0); Mean Platelet Volume 9.5 fL (7.4-10.4); Nucleated Red Blood Cells % 0 %; Platelet Count 259 10^3/uL (130-400); Red Cell Dist. Width 12.4 % (11.5-14.5); White Blood Cell Count 9.9 10^3/uL (4.8-10.8)
[2025-03-06 07:14] LABS: Blood Urea Nitrogen 16 mg/dl (7-17); Calcium 9.1 mg/dl (8.4-10.2); Carbon Dioxide 27 mmol/L (22-30); Chloride 103 mmol/L (98-107); Estimated Creatinine Clearance 71 ml/min; Glucose 92 mg/dl (70-99); Potassium 4.6 mmol/L (3.5-5.1); Sodium 140 mmol/L (135-145); eGFR > 60.00
[2025-03-06] MEDS: PROTONIX 40 MG PO (08:16)
[2025-03-06] MEDS: ELIQUIS 10 MG PO (08:17)
[2025-03-06 09:28] LABS: Glucose - Point of Care 97 mg/dl (70-99)
--- NOTE | 2025-03-06 11:37 | PN.CDI ---
CDI
- -
CDI:
Physician Documentation Request
Admit Date: 03/02/25 19:22
Dear Doctor Eh,
Patient admitted for pulmonary embolism.
ED Physician Documentation: 'Patient now recollecting that she did have a recent fall and injured her leg. Potentially this was the inciting event.'
03/05 Hospitalist PN: 'Only possible provoking factor could be DVT from recent fall'
Clarify which of the following accurately represents the acuity of the DVT. Possible options might include:
Acute
Chronic
Other
Use of terms such as suspected, likely, concern for, or probable (associated with a specific diagnosis that is being evaluated, monitored, or treated as if it exists) are acceptable and can be coded in the inpatient setting, when documented at the
time of discharge.
Thank you,
Opal Durand RN, BSN
CDI Specialist
Available via [place] text
Please use your independent medical judgment in providing your response.
--- NOTE | 2025-03-06 11:54 | W.PN.HOSP.TC ---
Addendum entered and electronically signed by Jm Stauffer MD 03/06/25 13:59:
acute
Original Note:
Today's Communication/Plan
-
Repeat BMP
Ambulatory pulse ox
Continue with Eliquis
Monitor for diet tolerance
Assessment / Plan
Assessment / Plan
# Unprovoked bilateral pulmonary emboli
# Acute hypoxic respiratory insufficiency
-Only possible provoking factor could be DVT from recent fall
-CT chest shows moderate volume bilateral pulmonary embolism, right greater than left in the distal right main pulmonary artery with findings suggesting developing pulmonary infarct. No cardiac findings to suggest heart strain
-Heparin drip-->Eliquis 10 mg bid
-venous ultrasound lower extremities: Occlusive thrombus in the left popliteal vein.
-Echocardiogram with EF of 55 to 60%. No significant valve disease. Normal biventricular size and systolic function without regional wall motion abnormality.
-Wean oxygen as tolerated-on room air currently. Check ambulatory pulse ox.
- Patient states she is due for colonoscopy. Had mammogram and Pap smear 3 years ago and was found to be normal. Recommended to follow-up with primary care for cancer screening and to be updated.
-PESI score Class III, Intermediate Risk: 3.2-7.1% 30-day mortality in this group.
# Epigastric/left upper quadrant abdominal pain unclear etiology. Has had for months, nontender, nonburning
-No palpable mass or hernia
-Dr. Mendieta contacted radiology (Dr. Donovan) and reviewed the epigastric area with him. No gross abnormalities seen.
-Underwent upper gastrointestinal series which showed Mild persistent short segment smooth narrowing of the distal thoracic esophagus. Findings could represent mild stricture. Mass would be unlikely but cannot be entirely excluded. Suggest upper
endoscopy if not recently obtained.
-Continue with PPI and H2 janell
-Tylenol, Dilaudid for pain
- Status post endoscopy which showed esophageal mucosal changes suspicious for eosinophilic esophagitis. No esophageal mass or stenosis. Mild gastritis. Few gastric polyps. Normal duodenum. GI recommended patient to be discharged pantoprazole
40 mg daily with outpatient endoscopy
Recently diagnosed diabetes
- Not started treatment yet.
Elevated Cr
-repeat BMP to see trend
GERD
Exercise-induced asthma
Full code
DVT prophylaxis�heparin-->Eliquis
Discussed with patient parents at bedside in details
Anticipated Discharge: Within 24 hours
Subjective/Interval History
-
Date of Service: March 06, 2025
seen post EGD
off oxygen
states of dry cough
Objective Data
-
Labs:
Laboratory Results
03/06/25 03/06/25
05:39 11:52
WBC 9.9
Hgb 13.2
Hct 38.8
Plt Count 259 D
Sodium 140 Pending
Potassium 4.6 Pending
Chloride 103 Pending
Carbon Dioxide 27 Pending
BUN 16 Pending
Creatinine 1.1 H Pending
Glucose 92 Pending
Calcium 9.1 Pending
Vital Signs:
Vital Signs
Temp Pulse Resp BP Pulse Ox
97.3 F 80 21 98/78 96
03/06/25 09:22 03/06/25 09:58 03/06/25 09:58 03/06/25 09:58 03/06/25 09:58
I&O
03/05/25 03/06/25 03/07/25
06:59 06:59 06:59
Intake Total 2160 / 2160 480 / 480
Balance 2160 / 2160 480 / 480
Physical Exam
-
General: Well Developed, Well Nourished, No Apparent Distress and Obese
HEENT: Normocephalic, Atraumatic, Moist Mucous Membranes and Oxygen
Respiratory: Clear to Auscultation
Cardiac: Regular Rhythm and S1/S2
GI: Soft, Nontender, Nondistended and Normal Bowel Sounds
Musculoskeletal: No Clubbing, No Cyanosis and No Edema
Skin: Warm and Dry
Neuro: Awake, Alert, Oriented, AO x 3 and No Motor Deficits
Psych: Calm
[2025-03-06 12:59] LABS: Blood Urea Nitrogen 15 mg/dl (7-17); Calcium 9.3 mg/dl (8.4-10.2); Carbon Dioxide 25 mmol/L (22-30); Chloride 103 mmol/L (98-107); Estimated Creatinine Clearance 78 ml/min; Glucose 141 mg/dl (70-99); Potassium 4.3 mmol/L (3.5-5.1); Sodium 140 mmol/L (135-145); eGFR > 60.00
--- NOTE | 2025-03-06 13:01 | CM ---
Pt weaned off oxygen Pox 96%.
On Eliquis pt has coupons.
Family will drive her home at dc.
Pt declined need for VN at dc
Lives independently at home.
PLAN Home no anticipated need .
--- NOTE | 2025-03-06 13:59 | W.DCSUMMARY ---
Discharge Summary
Discharge Data
Date of Admission: 03/02/25
Date of Discharge: 03/06/25
-
Pending Results: No
Hospital Course
54-year-old female past medical history of GERD, exercise-induced asthma who is presenting with shortness of breath. Patient underwent CT of the chest which showed CT chest shows moderate volume bilateral pulmonary embolism, right greater than left
in the distal right main pulmonary artery with findings suggesting developing pulmonary infarct. No cardiac findings to suggest heart strain. venous ultrasound lower extremities: Occlusive thrombus in the left popliteal vein. Patient was started
on heparin infusion. Patient required oxygenation was able to be weaned off. Echocardiogram with EF of 55 to 60%. No significant valve disease. Normal biventricular size and systolic function without regional wall motion abnormality. PESI score
Class III, Intermediate Risk: 3.2-7.1% 30-day mortality in this group. Patient vital signs were stable and she was transitioned to p.o. Eliquis. Patient was also complaining of severe epigastric discomfort and gastroenterology was consulted.
Underwent upper gastrointestinal series which showed Mild persistent short segment smooth narrowing of the distal thoracic esophagus. Findings could represent mild stricture. Mass would be unlikely but cannot be entirely excluded. Suggest upper
endoscopy if not recently obtained. Continue with PPI. Status post endoscopy which showed esophageal mucosal changes suspicious for eosinophilic esophagitis. No esophageal mass or stenosis. Mild gastritis. Few gastric polyps. Normal duodenum.
GI recommended patient to be discharged pantoprazole 40 mg daily with outpatient endoscopy. Patient states she is due for colonoscopy. Had mammogram and Pap smear 3 years ago and was found to be normal. Recommended to follow-up with primary care
for cancer screening and to be updated. Recommended to follow-up with hematology and pulmonary and primary doctor and gastroenterology as outpatient. Patient did not qualify for home oxygenation. Patient was stable on room air. Patient was
tolerating diet and be discharged home.
Discharge Plan
-
Patient Disposition: Home (Routine Discharge)
Discharge Diagnosis/Procedures: Pulmonary embolism
Acute hypoxic respiratory insufficiency
Epigastric abdominal discomfort
Elevated creatinine resolved
Condition: Fair
Diet: Diabetic, Carb Controlled
Activity: As tolerated
Driving Restrictions: As prior to admission
Activity Restrictions/Additional Instructions:
Recommend to follow-up with your primary doctor for further medication adjustment and refills.
Instructions: Pulmonary embolism - Discharge instructions
Referrals:
Ollie Beaulieu MD [Active] - in two to four weeks
NONE,* [Family Provider] - in less than 1 week (Recommend to follow-up with your primary doctor for further medication adjustment and refills.)
Marc Jaeger MD [Active] - in four to six weeks
Sheyla Adhikari DO [Active] - None
Prescriptions:
New
pantoprazole 40 mg Tablet,Delayed Release (Dr/Ec)
40 mg PO DAILY Qty: 30 0RF
Eliquis 5 mg Tablet
10 mg PO BID Qty: 62 0RF
Rx Instructions:
Take 10mg (2tabs) twice a day for 4 more days then 5mg (1tab) twice a day
Discharge Orders:
Discharge Patient (As Directed); Ordered 03/06/25
Ordered By: Jm Stauffer
Discharge Date and Time
Print Language: BULGARIAN
== END 2025-03-06 15:36 | disposition home or self-care (01) | DRG 176 ==
LOC: 4 EAST ACU 19:22
PROVIDERS: Internal Medicine; Internal Medicine Gastroenterology; ADMITTING PHYSICIAN Hospitalist; ATTENDING PHYSICIAN Hospitalist; CONSULT PHYSICIAN Internal Medicine; EMERGENCY PHYSICIAN Student in an Organized Health Care Education/Training Program
PROC: 0DJ08ZZ Inspection of Upper Intestinal Tract, Via Natural or Artificial Opening Endoscopic (ICD-10-PCS; 2025-03-06)
DX: I26.99 Other pulmonary embolism without acute cor pulmonale (principal); I82.432 Acute embolism and thrombosis of left popliteal vein; J98.11 Atelectasis; M25.552 Pain in left hip; J45.990 Exercise induced bronchospasm; K21.9 Gastro-esophageal reflux disease without esophagitis; E66.9 Obesity, unspecified; E11.9 Type 2 diabetes mellitus without complications; K20.0 Eosinophilic esophagitis; K29.70 Gastritis, unspecified, without bleeding; R13.10 Dysphagia, unspecified; K31.7 Polyp of stomach and duodenum; K22.89 Other specified disease of esophagus; R06.89 Other abnormalities of breathing; G89.29 Other chronic pain; R09.02 Hypoxemia; R10.12 Left upper quadrant pain; R79.89 Other specified abnormal findings of blood chemistry; V58.4XXA Person boarding or alighting a pick-up truck or van injured in noncollision transport accident, initial encounter; Y93.89 Activity, other specified; Y92.9 Unspecified place or not applicable; Z60.2 Problems related to living alone; Z82.49 Family history of ischemic heart disease and other diseases of the circulatory system; Z82.5 Family history of asthma and other chronic lower respiratory diseases; Z87.891 Personal history of nicotine dependence; Z88.1 Allergy status to other antibiotic agents; Z88.5 Allergy status to narcotic agent; Z88.0 Allergy status to penicillin; Z68.33 Body mass index [BMI] 33.0-33.9, adult; Z90.49 Acquired absence of other specified parts of digestive tract; Z87.01 Personal history of pneumonia (recurrent); Z86.19 Personal history of other infectious and parasitic diseases; Z63.5 Disruption of family by separation and divorce
CPT/HCPCS: 71275; 74246; 80048; 80053; 82962; 83036; 83880; 84484; 84703; 85025; 85379; 85730; 93005; 93306; 93970; 94640; 96365; 96366; 99291; Q9967

== ENCOUNTER 2025-04-18 12:15 | Emergency (ER) | payer BC, SELFPAY ==
[2025-04-18 12:15] VITALS: BMI 31.0
[2025-04-18 12:16] VITALS: BP 127/86
[2025-04-18 13:07] VITALS: BP 104/63
--- NOTE | 2025-04-18 13:21 | ED.GENMED ---
History of Present Illness
General
Chief Complaint: Breathing Problem
Source: patient
Exam Limitations: none
Time Seen by Provider: 04/18/25 12:44
Nursing documentation reviewed up to this point in time: agreed with
History of Present Illness
History of Present Illness:
see MDM
Past History
Past History
ED Past Medical History: Other (PE)
ED Past Surgical History: Cholecystectomy
Social History
Tobacco: Former smoker
Alcohol: None
Family History
Family History: CAD
Review of Systems
Review of Systems
Allergies reviewed?: Yes
All Other Systems: Not applicable
Phy Exam
Physical Exam
Physical Exam:
GENERAL: Alert , in no apparent distress
EYE: pupils equal and reactive
NECK: Supple
ENT: o/p clr, mmm.
CARDIAC: Regular rate and rhythm .
LUNGS: Inspiratory and expiratory wheezing throughout, diminished, no crackles, occasional cough, no respiratory distress
NEUROLOGICAL: Alert and oriented, no focal neuro deficits
SKIN: Warm and dry, skin intact.
MUSCULOSKELETAL: No edema, well perfused. neg chris's sign
PSYCH: Normal and appropriate interaction.
Scores
Heart Failure Risk
Heart Failure Risk Score: Not Applicable
Course
Orders/Labs/Results
Orders:
Orders
04/18/25 12:19
ECG [Electrocardiogram (*1)] Urgent
Reason for Study: Shortness of Breath
EKG- Treatment ONCE
04/18/25 13:13
Ipratropium/Albuterol Sulfate [Duoneb] 3 ml INH R NOW ONE
CR Chest - 2 Views Urgent
Comment:
Reason For Exam: wheezing
04/18/25 13:42
Complete Blood Count/With Diff Urgent
NT-proBNP Urgent
Troponin I Urgent
04/18/25 14:22
Comprehensive Metabolic Panel Urgent
04/18/25 14:58
Doxycycline [Vibramycin] 100 mg PO NOW STA
Abnormal Lab Results
04/18/25 04/18/25
13:42 14:22
MCH 33.5 H pg
(27.0-31.0)
Eosinophils % 7.8 H %
(0-6)
BUN 19 H mg/dl
(7-17)
04/18/25 13:42
04/18/25 14:22
Vital Signs
Initial and Last Documented VS:
Initial Vital Signs
Temp Pulse Resp BP Pulse Ox
37.1 C 81 20 127/86 95
04/18/25 12:16 04/18/25 12:16 04/18/25 12:16 04/18/25 12:16 04/18/25 12:16
Last Documented Vital Signs
Temp Pulse Resp BP Pulse Ox
37.1 C 68 21 110/75 98
04/18/25 12:16 04/18/25 14:45 04/18/25 14:45 04/18/25 14:30 04/18/25 15:10
MDM/Problems Addressed
Differential Diagnosis Includes:
see MDM
MDM/Problems Addressed:
Note:
CHIEF COMPLAINT(S)
Cough and chest tightness.
HISTORY OF PRESENT ILLNESS
The patient is a 54-year-old female with a history of bilateral pulmonary embolism (P.E.) diagnosed in March, for which she was started on apixaban. She denies any previous clots, surgeries, or travel that could have provoked the P.E. The patient is
compliant with her apixaban prescription, taking it twice daily without missing any doses. She presented with a cough and tightness in her chest that started last night. The chest tightness worsens at night, described as a crackling rather than
wheezing and is mostly dry. The patient noted that the tightness is a new symptom and unlike her previous experiences with P.E., where the symptomatology included chest and shoulder pain.
The patient denies having fevers, chills, or hemoptysis. Past experiences with asthma are notable; specifically, exercise-induced asthma diagnosed around five years ago. The patient has recently encountered issues with inhaler prescriptions; a nurse
advised using an inhaler every four hours but encountered delays in acquiring a daily inhaler prescription due to the physicians unavailability. The patient has also mentioned a narrowing of the esophagus noticed on a previous endoscopy, related to
gastritis, but there was confusion about scheduling another endoscopy.
The patient has not experienced any swelling in the legs, nor does she take diuretics. Oxygen levels have been satisfactory, and previous hospital discharge involved tapering off supplemental oxygen.
CHRONIC MEDICAL CONDITIONS SIGNIFICANTLY AFFECTING CARE
Exercise-induced asthma.
SOCIAL HISTORY
The patient reports no smoking history.
REVIEW OF SYSTEMS
- Respiratory: Cough, chest tightness, no wheezing noted, crackling in chest worse at night.
- Cardiovascular: No chest or shoulder pain as in previous P.E.
- Constitutional: No fevers or chills.
- Gastric: History of gastritis and narrowing of the esophagus.
PHYSICAL EXAM
- Nursing notes reviewed and vital signs reviewed.
PLAN
Initiate a chest X-ray and blood work. The plan includes nebulizer treatments to alleviate respiratory symptoms. Consideration for a single dose of oral prednisone, balancing the risk of bleeding due to apixaban, as long as gastrointestinal
endoscopy records do not reveal contraindications.
DIFFERENTIAL DIAGNOSIS
The Differential Diagnosis includes, in no particular order and is not limited to:
1. Asthma exacerbation
2. Gastroesophageal reflux disease (GERD)
3. Persistent pulmonary embolism complications
4. Acute bronchitis
5. Viral upper respiratory infection
7. Congestive heart failure
8. Pneumonia
10. Esophageal spasm or narrowing
pt reassesed after neb
lungs clear
feels bettert
pulse ox 95%; amb pulse ox 97%
cxr reviewed by me and i spoke with radiologist
subtle pna RLL
i asked if this coudl be the infarct seen on CT but he did not think so
d/w ed attending
i did offer admissino if pt was too sob to go home, but she wants to try outpatient abx
and she feels much better
allergic to PCN and ceph; i offered levaquina nd pt wants to avoid
will try monotherapy with doxy
i spoke with dr michele her shop repairer who added BREO and pred taper
*Pulse Oximetry
SaO2: 97
Oxygen Mode of Delivery: Room air
*Critical Care Note
Total Time (30-74mins, 75-104mins- exclusive of procedures): Not Applicable
ED Attending Note
-
Portions of this chart may have been created with voice recognition software.� Occasional wrong word or��sound alike� substitutions may have occurred due to the inherent limitations of voice recognition software.
Discharge Plan
Departure
Patient Disposition: Home (Routine Discharge)
Date of Disposition: 04/18/25
Time of Disposition: 15:08
Patient with high blood pressure during this ER visit?: No
Condition: Fair
Covid-19: Not Applicable
Discharge Problem:
Pneumonia, Wheezing
Instructions: Asthma, Adult (DC), Pneumonia in adults - ED discharge instructions
Prescriptions:
New
doxycycline hyclate 100 mg capsule
100 mg PO BID Qty: 14 0RF
albuterol sulfate 2.5 mg /3 mL (0.083 %) solution for nebulization
2.5 mg inhalation QID PRN (Reason: shortness of breath or wheezing) Qty: 90 0RF
No Action
pantoprazole 40 mg Tablet,Delayed Release (Dr/Ec)
40 mg PO DAILY Qty: 30 0RF
Eliquis 5 mg Tablet
10 mg PO BID Qty: 62 0RF
Rx Instructions:
Take 10mg (2tabs) twice a day for 4 more days then 5mg (1tab) twice a day
Referrals:
Rae Aldana, DO [Family Provider]
Activity Restrictions/Additional Instructions:
YOUR CHEST XRAY SHOWED SUBTLE PNEUMONIA
TAKE DOXYCYCLINE 100 MG TWICE A DAY FOR 7 DAYS
USE THE NEB MACHINE EVERY 4-6 HOURS FOR WHEEZING
USE THE BREO INHALER THAT DR MICHELE PRESCRBIED.
HE ALSO SAID YOU COULD START THE STEROID TAPER IF YOU DIDN'T SEE RELIEF WITH THE BREO
RETURN FOR: WORSENING SHORTNESS OF BREATH, NEW FEVER, CHEST PAIN, WORSE WHEEZING OR ANY CONCENRS.
OTHERWISE SEE DR. MICHELE
Interventions
Interventions:
*Risk Screen - Suicide Last Done: 04/18/25 13:14
*General Assessment Last Done: 04/18/25 12:16
*Neglect/Abuse Screening Last Done: 04/18/25 13:14
*ED- Fall Risk Assessment Last Done: 04/18/25 13:14
*Nursing Disposition Last Done: 04/18/25 15:10
ED- Cardiac Assessment Last Done: 04/18/25 13:14
ED- Pulmonary Assessment Last Done: 04/18/25 13:14
Discharge Date and Time
Print Language: ROMANIAN
[2025-04-18 13:51] VITALS: BP 109/86
[2025-04-18 13:55] LABS: % Basophils 0.7 % (0-2); % Eosinophils 7.8 % (0-6); % Immature Granulocytes 0.3 % (0-0.5); % Lymphocytes 31.5 % (20.5-51.1); % Monocytes 7.1 % (1.7-9.3); % Neutrophils 52.6 % (42.2-75.2); Absolute Basophils 0.1 10^3/uL (0-0.2); Absolute Eosinophils 0.6 10^3/uL (0-0.7); Absolute Lymphocytes 2.4 10^3/uL (1.2-3.4); Absolute Monocytes 0.5 10^3/uL (0.1-0.6); Hematocrit 41.8 % (37.0-47.0); Hemoglobin 14.4 g/dL (12.0-16.0); Mean Corp Hgb Conc. 34.4 g/dL (33.0-37.0); Mean Corpuscular Hgb 33.5 pg (27.0-31.0); Mean Corpuscular Volume 97.2 fL (81.0-99.0); Mean Platelet Volume 9.8 fL (7.4-10.4); Nucleated Red Blood Cells % 0 %; Platelet Count 245 10^3/uL (130-400); White Blood Cell Count 7.7 10^3/uL (4.8-10.8)
[2025-04-18 14:00] VITALS: BP 105/77
[2025-04-18 14:18] LABS: NT-proBNP < 20.0 pg/ml; Troponin I < 0.012 ng/ml
[2025-04-18] MEDS: DUONEB 3 ML INH (14:26)
[2025-04-18 14:30] VITALS: BP 110/75
[2025-04-18 14:50] LABS: ALT (SGPT) 20 U/L (0-35); AST (SGOT) 24 U/L (14-36); Albumin 4.4 g/dl (3.5-5.0); Alkaline Phosphatase 64 U/L (38-126); Blood Urea Nitrogen 19 mg/dl (7-17); Calcium 9.9 mg/dl (8.4-10.2); Carbon Dioxide 25 mmol/L (22-30); Chloride 107 mmol/L (98-107); Estimated Creatinine Clearance 77 ml/min; Glucose 85 mg/dl (70-99); Potassium 4.4 mmol/L (3.5-5.1); Sodium 140 mmol/L (135-145); Total Bilirubin 0.8 mg/dl (0.2-1.3); Total Protein 7.2 g/dl (6.3-8.2); eGFR > 60.00
[2025-04-18] MEDS: VIBRAMYCIN 100 MG PO (15:12)
== END 2025-04-18 15:10 | disposition home or self-care (01) ==
LOC: EMR 12:15
PROVIDERS: Physician Assistant; EMERGENCY PHYSICIAN Emergency Medicine; FAMILY PHYSICIAN Family Medicine
DX: J18.9 Pneumonia, unspecified organism (principal); R06.2 Wheezing
CPT/HCPCS: 99283; 94640; 71046; 80053; 83880; 84484; 85025; 93005

== ENCOUNTER 2025-05-25 16:16 | Emergency (ER) | payer BC, SELFPAY ==
[2025-05-25 16:20] VITALS: BP 131/89
[2025-05-25 16:47] LABS: Hematocrit 40.8 % (37.0-47.0); Hemoglobin 14.1 g/dL (12.0-16.0); Mean Corp Hgb Conc. 34.6 g/dL (33.0-37.0); Mean Corpuscular Volume 96.5 fL (81.0-99.0); Nucleated Red Blood Cells % 0 %; Platelet Count 218 10^3/uL (130-400); Red Cell Dist. Width 12.9 % (11.5-14.5)
[2025-05-25 17:06] LABS: ALT (SGPT) 15 U/L (0-35); AST (SGOT) 21 U/L (14-36); Albumin 4.7 g/dl (3.5-5.0); Alkaline Phosphatase 62 U/L (38-126); Blood Urea Nitrogen 27 mg/dl (7-17); Calcium 10.0 mg/dl (8.4-10.2); Carbon Dioxide 24 mmol/L (22-30); Chloride 107 mmol/L (98-107); Glucose 86 mg/dl (70-99); Potassium 4.3 mmol/L (3.5-5.1); Sodium 140 mmol/L (135-145); Total Protein 7.7 g/dl (6.3-8.2); eGFR > 60.00
--- NOTE | 2025-05-25 17:23 | ED.GENMED ---
History of Present Illness
General
Chief Complaint: DVT/Possible Blood Clot
Time Seen by Provider: 05/25/25 17:23
History of Present Illness
History of Present Illness:
TIME OF INITIAL EVALUATION
- 5:30 PM
REVIEW OF OLD RECORDS
- I reviewed records, the patient was admitted here with PE in March. At that time she was found to have an occlusive thrombus in the left popliteal vein. There was no heart strain by echo. She was transitioned to Eliquis.
Note:
CHIEF COMPLAINT(S)
Left leg pain and suspected deep vein thrombosis (DVT).
HISTORY OF PRESENT ILLNESS
The patient is a 54-year-old female who presents with left leg pain suspected to be related to a deep vein thrombosis. The pain primarily manifests in the calf region, which she initially attributed to plantar fasciitis. However, the discomfort
intensifies at night, sometimes accompanied by numbness. Today, ultrasound conducted at [facility] detected a clot in the gastrocnemius vein and a persistent clot in the popliteal vein of the left leg. The patient has a history of
pulmonary embolism and a prior thrombus in the popliteal vein, which adds context to the current presentation. The patient confirms continued adherence to Apixaban (Eliquis) at a dose of 5 mg twice daily. She does not report any current shortness of
breath or respiratory distress.
EXTERNAL RECORDS REVIEWED
A recent ultrasound from [facility] was reviewed, indicating a clot in the gastrocnemius vein and a persistent thrombus in the popliteal vein of the left leg.
MEDICATIONS
Apixaban 5 mg twice daily.
PHYSICAL EXAM
General: Alert, no acute distress.
Skin: Warm, dry.
Head: Normocephalic, atraumatic.
Neck: Supple, trachea midline.
Eye Ears, Nose, Mouth, and Throat: Oral mucosa moist.
Cardiovascular: Normal peripheral perfusion, No edema.
Respiratory: Respirations are non-labored.
Gastrointestinal: Abdomen nondistended.
Back: Normal range of motion, Normal alignment.
Musculoskeletal: Normal ROM, normal strength.
Neurological: Alert and oriented to person, place, time, and situation, No focal neurological deficit observed.
Psychiatric: Cooperative, appropriate mood & affect.
PLAN
- Continue Apixaban (Eliquis) 5 mg twice daily.
- Await further review and interpretation of the ultrasound results.
- Consider collaboration with the patients turnaround engineer, Dr. Dash, for management guidance.
- Bioinformatics Computer Scientist consultation is available if future respiratory issues arise.
- Monitor for any new or worsening symptoms such as shortness of breath or increased leg swelling.
DIFFERENTIAL DIAGNOSIS
The Differential Diagnosis includes, in no particular order and is not limited to:
1. Recurrence of deep vein thrombosis.
2. Chronic venous insufficiency.
3. Post-thrombotic syndrome.
4. Musculoskeletal strain or injury.
5. Peripheral artery disease.
6. Neuropathy.
7. Bakers cyst.
8. Cellulitis.
9. Lymphedema.
10. Myositis.
Disposition:
SUMMARY OF ENCOUNTER
The patient, a 54-year-old female, was seen in the emergency department due to left leg pain potentially related to a deep vein thrombosis (DVT). An ultrasound conducted at [facility] previously indicated a clot in the gastrocnemius vein
and a persistent thrombus in the popliteal vein of the left leg. The patient has a history of pulmonary embolism and prior thrombus in the popliteal vein. During the visit, there was a discussion with a radiologist who did not observe any abnormal
findings in the popliteal or gastrocnemius veins on the review of imaging. The patients symptoms, including calf pain and numbness, were explored, and plantar fasciitis was suggested as a potential source of discomfort. The patients adherence to
Apixaban (Eliquis) was confirmed, and no significant swelling or warmth was observed in the left leg upon examination.
DISPOSITION
Discharge.
PLAN
Continue Apixaban (Eliquis) as prescribed, at a dose of 5 mg twice daily. Since the current imaging does not suggest significant genetic involvement, outpatient management is considered sufficient. The patient is advised to monitor for any new
symptoms such as increased leg swelling or shortness of breath and to follow up with her primary care physician for ongoing management and the potential exploration of plantar fasciitis contributing to her symptoms.
INDEPENDENT REVIEW OF LABS AND INTERPRETATION OF TESTS
My independent interpretation of the ultrasound showed no significant clots in the evaluated veins, consistent with the consulted radiologists report.
MEDICAL DECISION MAKING
1. Complexity of Data Reviewed: Chronic conditions affecting care include history of pulmonary embolism and thrombosis in the popliteal vein.
Differential diagnosis list includes:
- Recurrence of deep vein thrombosis
- Chronic venous insufficiency
- Post-thrombotic syndrome
- Musculoskeletal strain or injury
- Peripheral artery disease
- Neuropathy
- Bakers cyst
- Cellulitis
- Lymphedema
- Myositis
2. Data:
- Category 1: Non-emergency department records reviewed include previous ultrasound report from [facility].
- Category 3: Discussion of management with Dr. Mclean, the associate doctor, confirmed no changes needed in the current management as imaging did not reveal new significant concerning findings.
3. Risk: Prescription drug management continues with Apixaban (Eliquis). Consideration of admission/observation was considered given the complexity and risk of the patients presenting complaint, but the decision for outpatient management was made
based on reassuring work-up results and patients stable condition.
DIAGNOSIS
Left leg pain
I discussed with Dr. Hudson who reviewed imaging again who sees no sign of blood clot. I also confirmed Dr. Nicole and we are in agreement to continue the patient at current Eliquis dosing. Her pain is rather vague but there are no concerning
findings on physical examination and no evidence of infection. She has a palpable DP pulse. Cap refill is normal.
Past History
Past History
ED Past Medical History: Other (PE)
ED Past Surgical History: Cholecystectomy
Social History
Tobacco: Former smoker
Alcohol: None
Family History
Family History: CAD
Phy Exam
Physical Exam
Physical Exam:
See HPI
Course
Orders/Labs/Results
Orders:
Orders
05/25/25 16:29
US Periph Venous LOWER Ext LT Urgent
Comment:
Reason For Exam: pain; swelling
05/25/25 16:35
Complete Blood Count/With Diff Urgent
Comprehensive Metabolic Panel Urgent
Abnormal Lab Results
05/25/25
16:35
MCH 33.3 H pg
(27.0-31.0)
BUN 27 H mg/dl
(7-17)
05/25/25 16:35
05/25/25 16:35
Vital Signs
Initial and Last Documented VS:
Initial Vital Signs
Temp Pulse Resp BP Pulse Ox
36.7 C 73 16 131/89 95
05/25/25 16:20 05/25/25 16:20 05/25/25 16:20 05/25/25 16:20 05/25/25 16:20
Last Documented Vital Signs
Temp Pulse Resp BP Pulse Ox
36.7 C 73 16 131/89 95
05/25/25 16:20 05/25/25 16:20 05/25/25 16:20 05/25/25 16:20 05/25/25 17:26
*Pulse Oximetry
SaO2: 95
Oxygen Mode of Delivery: Room air
Patient hypoxic: no
*Critical Care Note
Total Time (30-74mins, 75-104mins- exclusive of procedures): Not Applicable
ED Attending Note
-
Portions of this chart may have been created with voice recognition software.� Occasional wrong word or��sound alike� substitutions may have occurred due to the inherent limitations of voice recognition software.
Discharge Plan
Departure
Patient Disposition: Home (Routine Discharge)
Date of Disposition: 05/25/25
Time of Disposition: 18:36
Patient with high blood pressure during this ER visit?: Yes
Discharge Problem:
Left leg pain
Prescriptions:
No Action
pantoprazole 40 mg Tablet,Delayed Release (Dr/Ec)
40 mg PO DAILY Qty: 30 0RF
Eliquis 5 mg Tablet
10 mg PO BID Qty: 62 0RF
Rx Instructions:
Take 10mg (2tabs) twice a day for 4 more days then 5mg (1tab) twice a day
doxycycline hyclate 100 mg capsule
100 mg PO BID Qty: 14 0RF
albuterol sulfate 2.5 mg /3 mL (0.083 %) solution for nebulization
2.5 mg inhalation QID PRN (Reason: shortness of breath or wheezing) Qty: 90 0RF
Referrals:
Rae Aldana, DO [Family Provider]
Activity Restrictions/Additional Instructions:
The cause of your symptoms is unclear. The radiologist reviewed your imaging twice and sees no sign of blood clot. I also confirmed with Dr. Nicole, Dr. Oliver's associate who just recommends to continue the current dosing of Eliquis.
Return here if worse or other concerns.
Interventions
Interventions:
*Risk Screen - Suicide Last Done: 05/25/25 16:20
*General Assessment Last Done: 05/25/25 16:20
*Neglect/Abuse Screening Last Done: 05/25/25 16:20
*ED- Fall Risk Assessment Last Done: 05/25/25 16:20
*ED COVID-19 Vaccine History Last Done: 05/25/25 16:20
ED- Cardiac Assessment Last Done: 05/25/25 17:26
ED- Pulmonary Assessment Last Done: 05/25/25 17:26
ED-Peripheral Vascular Assessment Last Done: 05/25/25 17:26
ED-Skin Assessment Last Done: 05/25/25 17:26
Discharge Date and Time
Print Language: IRISH
== END 2025-05-25 18:45 | disposition home or self-care (01) ==
LOC: EMR 16:16
PROVIDERS: EMERGENCY PHYSICIAN Emergency Medicine; FAMILY PHYSICIAN Family Medicine
DX: M79.605 Pain in left leg (principal); R03.0 Elevated blood-pressure reading, without diagnosis of hypertension; Z87.891 Personal history of nicotine dependence; Z86.718 Personal history of other venous thrombosis and embolism; Z86.711 Personal history of pulmonary embolism; Z79.01 Long term (current) use of anticoagulants
CPT/HCPCS: 99285; 80053; 85025; 93971

== ENCOUNTER → 2025-06-14 13:18 | Outpatient (REF) | payer BC, SELFPAY | LOC: RAD 13:18 | PROVIDERS: ATTENDING PHYSICIAN Internal Medicine Critical Care Medicine; FAMILY PHYSICIAN Family Medicine | DX: I26.99 Other pulmonary embolism without acute cor pulmonale (principal); I82.432 Acute embolism and thrombosis of left popliteal vein | CPT/HCPCS: 93970 ==

== ENCOUNTER 2025-09-05 09:21 | Emergency (ER) | payer BC, SELFPAY ==
[2025-09-05 09:26] VITALS: BP 132/90
[2025-09-05 10:35] VITALS: BMI 32.5
[2025-09-05 10:41] VITALS: BP 128/87
[2025-09-05 11:00] VITALS: BP 121/76
--- NOTE | 2025-09-05 11:22 | ED.GENMED ---
History of Present Illness
General
Chief Complaint: Vaginal Bleeding
Time Seen by Provider: 09/05/25 10:15
History of Present Illness
History of Present Illness:
55-year-old female presents to the emergency department for evaluation of vaginal and rectal bleeding that began yesterday and worsened today. Reports 4 episodes of heavy bleeding this morning requiring changing of her pads. States that she has
also had scant blood from her rectum. Denies abdominal pain or cramping. No fevers or chills. She is currently anticoagulated after a PE that was diagnosed in March of this year on Eliquis. Follow-up ultrasound in June showed a nonocclusive
thrombus in the left calf vein that appeared to be chronic
Past History
Past History
ED Past Medical History: Other (PE)
ED Past Surgical History: Cholecystectomy
Social History
Tobacco: Former smoker
Alcohol: None
Family History
Family History: CAD
Review of Systems
Review of Systems
Allergies reviewed?: Yes
All Other Systems: ROS reviewed and negative except as documented in HPI and ROS
Phy Exam
Physical Exam
Physical Exam:
GEN: Well appearing, NAD, WDWN
HEENT: Oral mucosa moist, no scleral icterus
Cardiac: Regular rate
Lung: No respiratory distress, no tachypnea
MSK: No gross deformity or injuries
Skin: Good color, no pallor or jaundice, no rashes
Neuro: AO x3, moves all extremities freely
Psych: Calm, cooperative
Course
Orders/Labs/Results
Orders:
Orders
09/05/25 10:58
Type+Screen Urgent
Complete Blood Count/With Diff Urgent
Comprehensive Metabolic Panel Urgent
09/05/25 12:05
US Pelvis W Transvag Combined Urgent
Comment:
Reason For Exam: post menopausal bleeding
Abnormal Lab Results
09/05/25
10:58
MCV 101.3 H fL
(81.0-99.0)
MCH 33.3 H pg
(27.0-31.0)
MCHC 32.8 L g/dL
(33.0-37.0)
Abs Immat Gran (auto) 0.1 H 10^3/uL
(0-0.05)
Immature Gran % 1.5 H %
(0-0.5)
BUN 19 H mg/dl
(7-17)
09/05/25 10:58
09/05/25 10:58
Vital Signs
Initial and Last Documented VS:
Initial Vital Signs
Temp Pulse Resp BP Pulse Ox
98.4 F 64 18 132/90 100
09/05/25 09:26 09/05/25 09:26 09/05/25 09:26 09/05/25 09:26 09/05/25 09:26
Last Documented Vital Signs
Temp Pulse Resp BP Pulse Ox
97.8 F 70 18 96/66 97
09/05/25 14:38 09/05/25 14:00 09/05/25 14:00 09/05/25 14:00 09/05/25 11:24
MDM/Problems Addressed
MDM/Problems Addressed:
Ultrasound reveals thickened endometrium which could reflect endometrial hyperplasia or malignancy. Is not clear whether this is truly postmenopausal bleeding or breakthrough vaginal bleeding in the setting of perimenopause. Discussed case with
DRAW OPERATOR for follow-up purposes and also discussed treatment options given that she is within the treatment window for her pulmonary embolism thus would prefer not to hold her Eliquis, we will trial her on a course of TXA she will follow-up as an
outpatient with DRAW OPERATOR
*Pulse Oximetry
SaO2: 97
Oxygen Mode of Delivery: Room air
Patient hypoxic: no
*Critical Care Note
Total Time (30-74mins, 75-104mins- exclusive of procedures): Not Applicable
Update Note
Update Note:
1159: Pelvic/rectal exam performed w/ animal laboratory technician Shayla at bedside, mild-moderate vaginal bleeding noted, no e/o blood on rectal exam.
ED Attending Note
-
Portions of this chart may have been created with voice recognition software.� Occasional wrong word or��sound alike� substitutions may have occurred due to the inherent limitations of voice recognition software.
Discharge Plan
Departure
Patient Disposition: Home (Routine Discharge)
Date of Disposition: 09/05/25
Time of Disposition: 14:18
Patient with high blood pressure during this ER visit?: No
Discharge Problem:
Vaginal bleeding
Instructions: Heavy Periods (DC)
Prescriptions:
New
tranexamic acid 650 mg tablet
1,300 mg PO TID 5 Days Qty: 30 0RF
No Action
pantoprazole 40 mg Tablet,Delayed Release (Dr/Ec)
40 mg PO DAILY Qty: 30 0RF
Eliquis 5 mg Tablet
10 mg PO BID Qty: 62 0RF
Rx Instructions:
Take 10mg (2tabs) twice a day for 4 more days then 5mg (1tab) twice a day
doxycycline hyclate 100 mg capsule
100 mg PO BID Qty: 14 0RF
albuterol sulfate 2.5 mg /3 mL (0.083 %) solution for nebulization
2.5 mg inhalation QID PRN (Reason: shortness of breath or wheezing) Qty: 90 0RF
Referrals:
Rae Aldana DO [Family Provider]
Rosario Navarro MD [Active, Gynecology]
Activity Restrictions/Additional Instructions:
Follow-up with the above listed technical publications manager for further care
We will start you on tranexamic acid however you should continue your Eliquis for the time being. After your CT scan tomorrow please follow-up with your nurse administrator and/or information writer regarding continuation of the Eliquis particularly if the
bleeding continues
Return to the emergency department if bleeding worsens
Interventions
Interventions:
*Risk Screen - Suicide Last Done: 09/05/25 09:26
*General Assessment Last Done: 09/05/25 09:26
*Neglect/Abuse Screening Last Done: 09/05/25 11:04
*ED- Fall Risk Assessment Last Done: 09/05/25 10:35
*ED COVID-19 Vaccine History Last Done: 09/05/25 10:35
*ED Influenza Vaccine History Last Done: 09/05/25 10:35
*Nursing Disposition Last Done: 09/05/25 14:39
ED-Female Genitourinary Assessment Last Done: 09/05/25 10:35
Discharge Date and Time
Discharge Date/Time: 09/05/25 14:40
Print Language: MAURITANIAN
[2025-09-05 11:27] LABS: Hematocrit 46.6 % (37.0-47.0); Hemoglobin 15.3 g/dL (12.0-16.0); Mean Corp Hgb Conc. 32.8 g/dL (33.0-37.0); Mean Corpuscular Volume 101.3 fL (81.0-99.0); Nucleated Red Blood Cells % 0 %; Platelet Count 239 10^3/uL (130-400); Red Cell Dist. Width 12.9 % (11.5-14.5)
[2025-09-05 11:46] LABS: ALT (SGPT) 17 U/L (0-35); AST (SGOT) 22 U/L (14-36); Albumin 4.6 g/dl (3.5-5.0); Alkaline Phosphatase 67 U/L (38-126); Blood Urea Nitrogen 19 mg/dl (7-17); Calcium 9.5 mg/dl (8.4-10.2); Carbon Dioxide 28 mmol/L (22-30); Chloride 103 mmol/L (98-107); Estimated Creatinine Clearance 84 ml/min; Glucose 87 mg/dl (70-99); Potassium 4.7 mmol/L (3.5-5.1); Sodium 138 mmol/L (135-145); Total Protein 7.6 g/dl (6.3-8.2); eGFR > 60.00
[2025-09-05 12:24] VITALS: BP 101/80
[2025-09-05 13:00] VITALS: BP 113/76
[2025-09-05 14:00] VITALS: BP 96/66
== END 2025-09-05 14:40 | disposition home or self-care (01) ==
LOC: EMR 09:21
PROVIDERS: Physician Assistant; EMERGENCY PHYSICIAN Emergency Medicine; FAMILY PHYSICIAN Family Medicine
DX: N93.9 Abnormal uterine and vaginal bleeding, unspecified (principal); Z90.49 Acquired absence of other specified parts of digestive tract; Z87.891 Personal history of nicotine dependence; Z86.711 Personal history of pulmonary embolism; Z86.718 Personal history of other venous thrombosis and embolism; Z79.01 Long term (current) use of anticoagulants
CPT/HCPCS: 99284; 76830; 76856; 80053; 85025; 86850; 86900; 86901

== ENCOUNTER → 2025-09-06 08:33 | Outpatient (REF) | payer BC, SELFPAY | LOC: RAD 08:33 | PROVIDERS: ATTENDING PHYSICIAN Internal Medicine Critical Care Medicine; FAMILY PHYSICIAN Family Medicine; OTHER PHYSICIAN Internal Medicine | DX: I26.99 Other pulmonary embolism without acute cor pulmonale (principal) | CPT/HCPCS: 71250 ==

== ENCOUNTER → 2025-09-15 08:35 | Outpatient (REF) | payer BC, SELFPAY | LOC: WDC 08:35 | PROVIDERS: ATTENDING PHYSICIAN Internal Medicine Hematology & Oncology; FAMILY PHYSICIAN Family Medicine | DX: Z12.31 Encounter for screening mammogram for malignant neoplasm of breast (principal) | CPT/HCPCS: 77063; 77067 ==